=== PATIENT | male | born 1960 | race Caucasian/White ===

== ENCOUNTER 2018-10-10 10:33 | Emergency (ER) | payer OTHER ==
--- OUTSIDE RECORDS SUMMARY | 2018-10-10 10:44 | XMS REPORT ---
:1960 [facility] Address [address] [place] [address] Dr. Ballard. [address] [place] [id number] Care Team Providers Name Role Phone Unavailable Unavailable Unavailable Problems This patient has no known problems. Allergies, Adverse Reactions, Alerts This patient has no known allergies or adverse reactions. Medications This patient has no known medications.
--- NOTE | 2018-10-10 12:21 | RAD REPORT ---
EXAM DESCRIPTION: US - Extrem Venous W Compress Toy - 10/10/2018 11:59 am CLINICAL HISTORY: re-evaluate dvt Bilateral leg edema and swelling. COMPARISON: No comparisons TECHNIQUE: Real-time sonographic interrogation of the left and right lower extremity deep venous sys tems was performed. FINDINGS: Normal compressibility, flow augmentation, phasic flow and spontaneous flow is identified in both the left and right lower extremity deep venous systems. IMPRESSION: No sonographic evidence of left or right lower extremity deep venous thrombosis.
--- NOTE | 2018-10-10 12:54 | ER ---
Nurse's Notes [facility] Name: Charan Schofield Age: 57 yrs Sex: Male : 1960 Arrival Date: 10/10/2018 Time: 10:37 Bed 26 Private MD: Diagnosis: Pain in left knee;Pain in right knee Presentation: 10/10 10:49 Presenting complaint: Patient states: Diagnosed with LLE DVT after a trip to [place] 09/27/2018. Pt reports his symptoms have improved after taking prescribed medication and has had an ultrasound that showed evidence that the blood clot was there, but is now absent. Pt called his ortho doctor today for follow up as he is having bilateral knee pain, but was instructed to come to ED for evaluation to determine which doctor he needs to see. Transition of care: patient was received from another setting of care (hospital). Onset of symptoms was September 27, 2018. Risk Assessment: Do you want to hurt yourself or someone else? Patient reports no desire to harm self or others. Initial Sepsis Screen: Does the patient meet any 2 criteria? No. Patient's initial sepsis screen is negative. Does the patient have a suspected source of infection? No. Patient's initial sepsis screen is negative. Care prior to arrival: None. 10:49 Method Of Arrival: Ambulatory ss 10:49 Acuity: EAGLE 3 ss Historical: - Allergies: 10:55 No Known Allergies; ss - PMHx: 10:55 DVT; borderline HTN; ss - PSHx: 10:55 None; ss - Immunization history:: Adult Immunizations up to date. - Social history:: Smoking status: Patient/guardian denies using tobacco. - Ebola Screening: : Patient denies exposure to infectious person Patient denies travel to an Ebola-affected area in the 21 days before illness onset. Screenin:45 Abuse screen: Denies threats or abuse. Denies injuries from another. Nutritional aj screening: No deficits noted. Tuberculosis screening: No symptoms or risk factors identified. Fall Risk None identified. Assessment: 12:45 General: Appears in no apparent distress. comfortable, Behavior is calm, cooperative, aj appropriate for age. Pain: Complains of pain in right knee and left knee. Neuro: Level of Consciousness is awake, alert, obeys commands, Oriented to person, place, time, situation, Appropriate for age. Respiratory: Airway is patent Respiratory effort is even, unlabored, Respiratory pattern is regular, symmetrical. Derm: Skin is intact, is healthy with good turgor, Skin is pink, warm \T\ dry. normal. Vital Signs: 10:55 BP 151 / 106; Pulse 103; Resp 16; Temp 98.3(TE); Pulse Ox 97% on R/A; Weight 90.72 kg; Height 5 ft. 10 in. (177.80 cm); Pain 8/10; 12:37 BP 126 / 79; Pulse 85; Resp 18; Temp 98.5(O); Pulse Ox 97% on R/A; mh5 10:55 Body Mass Index 28.70 (90.72 kg, 177.80 cm) ED Course: 10:37 Patient arrived in ED. mr 10:54 Triage completed. ss 10:55 Reyna Contreras FNP-C is PHCP. kb 10:55 Jhony Altamirano MD is Attending Physician. kb 10:55 Arm band placed on right wrist. ss 10:59 Tiffanie Donaldson, RN is Primary Nurse. aj 11:54 US Extremity Venous W Compression Toy In Process Unspecified. EDMS 12:45 Patient has correct armband on for positive identification. aj 12:45 No provider procedures requiring assistance completed. Patient did not have IV access aj during this emergency room visit. Administered Medications: No medications were administered Outcome: 12:53 Discharge ordered by . kb 13:28 Patient left the ED. iw Signatures: Dispatcher [employer] EDWI Reyna Contreras FNP-C FNP-Tiffanie Verma, Tasha Lemon RN mr Lashanda Burciaga, Pilar Cantrell RN, RN RN ss Martinez, Maria [facility]
--- NOTE | 2018-10-10 12:54 | EDPHYS ---
Physician Documentation [facility] Name: Charan Schofield Age: 57 yrs Sex: Male : 1960 Arrival Date: 10/10/2018 Time: 10:37 Bed 26 Private MD: ED Physician Jhony Altamirano HPI: 10/10 12:49 This 57 yrs old Male presents to ER via Ambulatory with complaints of Leg kb Swelling. 12:49 The patient presents with pain, that is acute. The complaints affect the left knee, kb right knee. 12:49 Context: resulted from an unknown cause, the patient can fully bear weight, the patient kb is able to ambulate. Onset: The symptoms/episode began/occurred last week. Modifying factors: The symptoms are alleviated by nothing. the symptoms are aggravated by changing from sitting to standing. Associated signs and symptoms: The patient has no apparent associated signs or symptoms. Treatment prior to arrival includes: no previous treatment. Severity of symptoms: At their worst the symptoms were moderate, in the emergency department the symptoms are unchanged. The patient has not experienced similar symptoms in the past. The patient has been recently seen by a physician:. Pt reports bilateral knee "soreness" when changing from sitting to standing position. Returned from [place] over the weekend so called his orthopedist to make an appt for evaluation and was told to come to the ER to decide what specialty he needed to follow up with first. Pt was diagnosed with DVT while in [place], treated with lovenox and had an US that showed the clot was gone. Denies shortness of breath. Historical: - Allergies: 10:55 No Known Allergies; ss - PMHx: 10:55 DVT; borderline HTN; ss - PSHx: 10:55 None; ss - Immunization history:: Adult Immunizations up to date. - Social history:: Smoking status: Patient/guardian denies using tobacco. - Ebola Screening: : Patient denies exposure to infectious person Patient denies travel to an Ebola-affected area in the 21 days before illness onset. ROS: 12:47 Constitutional: Negative for fever, chills, and weight loss, Neck: Negative for injury, kb pain, and swelling, Cardiovascular: Negative for chest pain, palpitations, and edema, Respiratory: Negative for shortness of breath, cough, wheezing, and pleuritic chest pain, Abdomen/GI: Negative for abdominal pain, nausea, vomiting, diarrhea, and constipation, Skin: Negative for injury, rash, and discoloration, Neuro: Negative for headache, weakness, numbness, tingling, and seizure. 12:47 MS/extremity: Positive for pain, of the right knee and left knee. Exam: 12:47 Constitutional: This is a well developed, well nourished patient who is awake, alert, kb and in no acute distress. Head/Face: Normocephalic, atraumatic. Chest/axilla: Normal chest wall appearance and motion. Nontender with no deformity. No lesions are appreciated. Cardiovascular: Regular rate and rhythm with a normal S1 and S2. No gallops, murmurs, or rubs. Normal PMI, no JVD. No pulse deficits. Respiratory: Lungs have equal breath sounds bilaterally, clear to auscultation and percussion. No rales, rhonchi or wheezes noted. No increased work of breathing, no retractions or nasal flaring. Abdomen/GI: Soft, non-tender, with normal bowel sounds. No distension or tympany. No guarding or rebound. No evidence of tenderness throughout. Skin: Warm, dry with normal turgor. Normal color with no rashes, no lesions, and no evidence of cellulitis. MS/ Extremity: Pulses equal, no cyanosis. Neurovascular intact. Full, normal range of motion. Neuro: Awake and alert, GCS 15, oriented to person, place, time, and situation. Cranial nerves II-XII grossly intact. Motor strength 5/5 in all extremities. Sensory grossly intact. Cerebellar exam normal. Normal gait. Vital Signs: 10:55 BP 151 / 106; Pulse 103; Resp 16; Temp 98.3(TE); Pulse Ox 97% on R/A; Weight 90.72 kg; ss Height 5 ft. 10 in. (177.80 cm); Pain 8/10; 12:37 BP 126 / 79; Pulse 85; Resp 18; Temp 98.5(O); Pulse Ox 97% on R/A; mh5 10:55 Body Mass Index 28.70 (90.72 kg, 177.80 cm) ss MDM: 11:05 Patient medically screened. kb 12:48 Data reviewed: vital signs, nurses notes. Data interpreted: Pulse oximetry: on room air kb is 97 %. Interpretation: normal. Counseling: I had a detailed discussion with the patient and/or guardian regarding: the historical points, exam findings, and any diagnostic results supporting the discharge/admit diagnosis, radiology results, the need for outpatient follow up, a orthopedic surgeon, to return to the emergency department if symptoms worsen or persist or if there are any questions or concerns that arise at home. 10/10 11:26 Order name: US Extremity Venous W Compression Toy; Complete Time: 12:24 kb Administered Medications: No medications were administered Disposition: 10/11 06:59 Co-signature as Attending Physician, Jhony Altamirano MD I agree with the assessment and azeem plan of care. Disposition: 10/10/18 12:53 Discharged to Home. Impression: Pain in left knee, Pain in right knee. - Condition is Stable. - Discharge Instructions: Knee Pain, [id number]. - Medication Reconciliation Form, Thank You Letter, Antibiotic Education, Prescription Opioid Use form. - Follow up: Emergency Department; When: As needed; Reason: Worsening of condition. Follow up: Private Physician; When: 2 - 3 days; Reason: Recheck today's complaints, Continuance of care, Re-evaluation by your physician. Signatures: Dispatcher [employer] Reyna Jarvis, SOLVENT STATION ATTENDANT-C SOLVENT STATION ATTENDANT-Jhony Nuno MD MD cha Williams, Irene, Pilar Cantrell RN, RN RN ss Corrections: (The following items were deleted from the chart) 10/10 13:28 12:53 10/10/2018 12:53 Discharged to Home. Impression: Pain in left knee; Pain in right iw knee. Condition is Stable. Forms are Medication Reconciliation Form, Thank You Letter, Antibiotic Education, Prescription Opioid Use. Follow up: Emergency Department; When: As needed; Reason: Worsening of condition. Follow up: Private Physician; When: 2 - 3 days; Reason: Recheck today's complaints, Continuance of care, Re-evaluation by your physician. kb
== END 2018-10-10 13:28 | disposition home or self-care (01) ==
LOC: ER 10:33
DX: M25.562 Pain in left knee (principal); M25.561 Pain in right knee; Z86.718 Personal history of other venous thrombosis and embolism
CPT/HCPCS: 93970; 99283

== ENCOUNTER 2020-03-28 19:14 | Observation (INO) | payer OTHER ==
--- OUTSIDE RECORDS SUMMARY | 2020-03-28 19:16 | XMS REPORT | Continuity of Care Document ---
:[address] [facility] t Address [address] [place] [address] Dr. Ballard. [address] [place] [address] Care Team Providers Name Role Phone Unavailable Unavailable Unavailable Problems This patient has no known problems. Allergies, Adverse Reactions, Alerts This patient has no known allergies or adverse reactions. Medications This patient has no known medications. Procedures This patient has no known procedures. Results This patient has no known results.
[2020-03-28 19:43] LABS: Absolute Lymphocytes (CBC) 1.7 K/uL (0.7-4.9); Basophils % 0.6 % (0-1.3); Hematocrit 44.4 % (39.6-49.0); Lymphocytes % 21.9 % (15.3-44.8); MPV 10.8 fL (7.6-11.3); RBC Red Blood Cell Count 4.77 M/uL (4.33-5.43)
[2020-03-28] MEDS ORDERED: NITROGLYCERIN 0.4 MG/TAB SL ONE (19:44)
[2020-03-28 19:45] LABS: Protime INR 1.01
[2020-03-28] MEDS ORDERED: ACETAMINOPHEN 325 MG TABLET ONE (19:47)
[2020-03-28 20:01] LABS: ALT/SGPT 33 U/L (12-78); AST/SGOT 16 U/L (15-37); Albumin 4.1 g/dL (3.4-5.0); Alkaline Phosphatase 66 U/L (45-117); BUN Blood Urea Nitrogen 10 mg/dL (7-18); Bicarbonate 27 mmol/L (21-32); Bilirubin Direct 0.2 mg/dL (0-0.2); Bilirubin Total 0.7 mg/dL (0.2-1.0); Glucose Level 112 mg/dL (74-106); Magnesium 2.4 mg/dL (1.8-2.4); NT PRO-BNP 47 pg/mL (<125); Potassium 3.8 mmol/L (3.5-5.1); Protein, Total 7.4 g/dL (6.4-8.2); Sodium Level 138 mmol/L (136-145); Troponin (Emerg Dept Use Only) < 0.02 ng/mL (0.0-0.045)
--- NOTE | 2020-03-28 20:06 | RAD REPORT ---
EXAM DESCRIPTION: RAD - Chest Single View - 03/28/2020 8:00 pm CLINICAL HISTORY: CHEST PAIN Chest pain. COMPARISON: No comparisons FINDINGS: Portable technique limits examination quality. The lungs are grossly clear. The heart is normal in size. No displaced fractures. IMPRESSION: No acute intrathoracic process suspected.
--- NOTE | 2020-03-28 20:31 | RAD REPORT ---
EXAM DESCRIPTION: CT - Head Brain Wo Cont - 03/28/2020 8:23 pm CLINICAL HISTORY: CONFUSED Headache, drowsiness COMPARISON: No comparisons TECHNIQUE: All CT scans are performed using dose optimization technique as appropriate and may inclu de automated exposure control or mA/KV adjustment according to patient size. FINDINGS: No intracranial hemorrhage, hydrocephalus or extra-axial fluid collection.No areas of brai n edema or evidence of midline shift. The paranasal sinuses and mastoids are clear. The calvarium is intact. IMPRESSION: No acute intracranial abnormality.
--- NOTE | 2020-03-28 20:34 | RAD REPORT ---
EXAM DESCRIPTION: CT - Chest For Pe Angio - 03/28/2020 8:26 pm CLINICAL HISTORY: Chest pain. CHEST PAIN COMPARISON: No comparisons TECHNIQUE: CT angiogram of the pulmonary arteries was performed with MIP. All CT scans are performed using dose optimization technique as appropriate and may include automated exposure control or mA/KV adjustment according to patient size. FINDINGS: No evidence of pulmonary thromboembolism. No acute aortic finding demonstrated. The lungs are clear. No significant pericardial or pleural fluid. No concerning bony finding. IMPRESSION: No evidence of pulmonary thromboembolism. No acute lung findings.
--- NOTE | 2020-03-28 20:35 | ER ---
Nurse's Notes [facility] Name: Charan Schofield Age: 59 yrs Sex: Male : 1960 Arrival Date: 03/28/2020 Time: 19:14 Bed 7 Private MD: Diagnosis: Other chest pain Presentation: 03/28 19:28 Chief complaint: Patient states: he started feeling his whole body tingling, his arms bb are feeling heavy and he started having chest pain approx an hour ago, feels like he is having trouble concentrating. Coronavirus screen: At this time, the client does not indicate any symptoms associated with coronavirus-19. Ebola Screen: No symptoms or risks identified at this time. Initial Sepsis Screen: Does the patient meet any 2 criteria? No. Patient's initial sepsis screen is negative. Does the patient have a suspected source of infection? No. Patient's initial sepsis screen is negative. Risk Assessment: Do you want to hurt yourself or someone else? Patient reports no desire to harm self or others. Onset of symptoms was March 28, 2020. 19:28 Method Of Arrival: Wheelchair bb 19:28 Acuity: EAGLE 2 bb Historical: - Allergies: 19:32 No Known Allergies; bb - Home Meds: 19:32 testosterone [Active]; Folbic oral oral [Active]; bb - PMHx: 19:32 borderline HTN; DVT; Electrocution; bb - PSHx: 19:32 skin grafts; bb - Immunization history:: Adult Immunizations up to date. - Social history:: Smoking status: Patient denies any tobacco usage or history of. Patient uses alcohol, on a daily basis. Screenin:28 Abuse screen: Denies threats or abuse. Nutritional screening: No deficits noted. ea Tuberculosis screening: No symptoms or risk factors identified. Fall Risk IV access (20 points). Assessment: 19:16 Reassessment: sere triage assessment. Pain: Complains of pain in chest Pain does not ll2 radiate. Pain began suddenly. 20:10 General: Appears in no apparent distress. Behavior is calm, cooperative, appropriate ll2 for age. 20:46 Reassessment: Patient and/or family updated on plan of care and expected duration. Pain ll2 level reassessed. Patient is alert, oriented x 3, equal unlabored respirations, skin warm/dry/pink. ERP at bedside. 21:47 Reassessment: Patient and/or family updated on plan of care and expected duration. Pain ll2 level reassessed. Patient is alert, oriented x 3, equal unlabored respirations, skin warm/dry/pink. 21:54 Reassessment: report given to JAKUB clarke. ll2 22:14 Cardiovascular: Rhythm is sinus rhythm. ll2 Vital Signs: 19:28 BP 164 / 113; Pulse 86; Resp 14 S; Temp 98.3(O); Pulse Ox 98% on R/A; Weight 87.54 kg bb (R); Height 5 ft. 10 in. (177.80 cm) (R); Pain 2/10; 20:11 BP 141 / 98; Pulse 60; Resp 13; Temp 98.4; Pulse Ox 97% on R/A; ll2 20:37 BP 143 / 93; Pulse 63; Resp 18; Pulse Ox 96% on R/A; ll2 21:46 BP 117 / 76; Pulse 67; Resp 16; Pulse Ox 95% on R/A; ll2 19:28 Body Mass Index 27.69 (87.54 kg, 177.80 cm) ED Course: 19:14 Patient arrived in ED. am2 19:16 Keven Tesfaye MD is Attending Physician. tw4 19:28 Nicole Rome, JAKUB is Primary Nurse. ll2 19:28 Inserted saline lock: 20 gauge in right antecubital area, using aseptic technique. ea Blood collected. 19:29 Patient maintains SpO2 saturation greater than 95% on room air. ea 19:29 Arm band placed on right wrist. Patient placed in an exam room, on a stretcher, on ea lawyers, on pulse oximetry. EKG completed in triage. Results shown to MD. 19:29 Patient has correct armband on for positive identification. Placed in gown. Bed in low ea position. Call light in reach. Side rails up X 1. Adult w/ patient. menhaden vessel pilot on. Pulse ox on. NIBP on. 19:31 Triage completed. bb 19:58 XRAY Chest (1 view) In Process Unspecified. EDMS 20:23 CT Head Brain wo Cont In Process Unspecified. EDMS 20:26 CT Chest For PE Angio In Process Unspecified. EDMS 20:33 Olman Barahona is Hospitalizing Provider. tw4 22:14 No provider procedures requiring assistance completed. Patient admitted, IV remains in ll2 place. Administered Medications: 19:47 Drug: Nitroglycerin 0.4 mg Route: Sublingual; ea 20:37 Follow up: Response: No adverse reaction ll2 19:48 Drug: Tylenol 650 mg Route: PO; ea 20:37 Follow up: Response: No adverse reaction ll2 Outcome: 20:34 Decision to Hospitalize by Provider. tw4 22:14 Admitted to Med/surg accompanied by tech, via wheelchair, Report called to JAKUB CLARKE ll2 22:15 Condition: stable ll2 22:15 Instructed on the need for admit. 22:15 Patient left the ED. 2 Signatures: Dispatcher [employer] Carrie Garner, RN Tiffanie Joseph Elena, Keven Cruz RN, ea, MD MD tw4 Nicole Rome RN RN 2
--- NOTE | 2020-03-28 20:35 | EDPHYS ---
Physician Documentation [facility] Name: Charan Schofield Age: 59 yrs Sex: Male : 1960 Arrival Date: 03/28/2020 Time: 19:14 Bed 7 Private MD: ED Physician Keven Tesfaye HPI: 03/28 19:44 This 59 yrs old Male presents to ER via Wheelchair with complaints of Chest tw4 Pain > 30 y/o, High Blood Pressure. 19:44 The patient or guardian reports chest pain that is located primarily in the anterior tw4 chest wall, left. Onset: just prior to arrival, today. The pain does not radiate. Associated signs and symptoms: The patient has no apparent associated signs or symptoms. The chest pain is described as a pressure. Duration: The patient or guardian reports a single episode, that is still ongoing, but improving. Modifying factors: The symptoms are alleviated by nothing. the symptoms are aggravated by nothing. Severity of pain: At its worst the pain was moderate in the emergency department the pain is unchanged. Historical: - Allergies: 19:32 No Known Allergies; bb - Home Meds: 19:32 testosterone [Active]; Folbic oral oral [Active]; bb - PMHx: 19:32 borderline HTN; DVT; Electrocution; bb - PSHx: 19:32 skin grafts; bb - Immunization history:: Adult Immunizations up to date. - Social history:: Smoking status: Patient denies any tobacco usage or history of. Patient uses alcohol, on a daily basis. ROS: 19:44 Constitutional: Negative for fever, chills, and weight loss, Eyes: Negative for injury, tw4 pain, redness, and discharge, Neck: Negative for injury, pain, and swelling, Respiratory: Negative for shortness of breath, cough, wheezing, and pleuritic chest pain, Abdomen/GI: Negative for abdominal pain, nausea, vomiting, diarrhea, and constipation, Back: Negative for injury and pain, MS/Extremity: Negative for injury and deformity, Skin: Negative for injury, rash, and discoloration. 19:44 Cardiovascular: Positive for chest pain. Exam: 19:44 Constitutional: This is a well developed, well nourished patient who is awake, alert, tw4 and in no acute distress. Head/Face: Normocephalic, atraumatic. Chest/axilla: Normal chest wall appearance and motion. Nontender with no deformity. No lesions are appreciated. Cardiovascular: Regular rate and rhythm with a normal S1 and S2. No gallops, murmurs, or rubs. Normal PMI, no JVD. No pulse deficits. Respiratory: Lungs have equal breath sounds bilaterally, clear to auscultation and percussion. No rales, rhonchi or wheezes noted. No increased work of breathing, no retractions or nasal flaring. Abdomen/GI: Soft, non-tender, with normal bowel sounds. No distension or tympany. No guarding or rebound. No evidence of tenderness throughout. Back: No spinal tenderness. No costovertebral tenderness. Full range of motion. Skin: Warm, dry with normal turgor. Normal color with no rashes, no lesions, and no evidence of cellulitis. MS/ Extremity: Pulses equal, no cyanosis. Neurovascular intact. Full, normal range of motion. Neuro: Awake and alert, GCS 15, oriented to person, place, time, and situation. Cranial nerves II-XII grossly intact. Motor strength 5/5 in all extremities. Sensory grossly intact. Cerebellar exam normal. Normal gait. Vital Signs: 19:28 BP 164 / 113; Pulse 86; Resp 14 S; Temp 98.3(O); Pulse Ox 98% on R/A; Weight 87.54 kg bb (R); Height 5 ft. 10 in. (177.80 cm) (R); Pain 2/10; 20:11 BP 141 / 98; Pulse 60; Resp 13; Temp 98.4; Pulse Ox 97% on R/A; ll2 20:37 BP 143 / 93; Pulse 63; Resp 18; Pulse Ox 96% on R/A; ll2 21:46 BP 117 / 76; Pulse 67; Resp 16; Pulse Ox 95% on R/A; ll2 19:28 Body Mass Index 27.69 (87.54 kg, 177.80 cm) MDM: 19:44 Patient medically screened. tw4 21:48 Differential diagnosis: acute myocardial infarction, acute pericarditis, anxiety, tw4 coronary artery disease esophagitis, pericarditis, pneumonia, pulmonary embolus, stable angina, thoracic aortic disection. HEART Score: History: Highly Suspicious (2), ECG: Normal (0), Age: > 45 and < 65 years (1), Risk Factors: 1 or 2 risk factors (1), Troponin: < or = 1 x Normal Limit (0), Total Score = 4. The patient was given aspirin in the Emergency Department. Data reviewed: vital signs, nurses notes. Data reviewed: lab test result(s), cardiac enzymes, CBC, electrolytes, EKG, radiologic studies, plain films. Data interpreted: Pulse oximetry: Interpretation: normal. Test interpretation: by ED physician or midlevel provider: ECG, plain radiologic studies. Counseling: I had a detailed discussion with the patient and/or guardian regarding: the historical points, exam findings, and any diagnostic results supporting the discharge/admit diagnosis, the presence of at least one elevated blood pressure reading (>120/80) during this emergency department visit, lab results, the need for further work-up and treatment in the hospital. Physician consultation: Olman Barahona regarding admission, to the telemetry unit. patient's condition, and will see patient in inpatient room. 03/28 19:17 Order name: Basic Metabolic Panel; Complete Time: 20:05 4 03/28 21:47 Interpretation: Normal except: GLUC 112; GFR 70. 03/28 19:17 Order name: CBC with Diff; Complete Time: 20:05 4 03/28 21:47 Interpretation: Within normal limits. 03/28 19:17 Order name: LFT's; Complete Time: 20:05 4 03/28 21:47 Interpretation: Within normal limits. 03/28 19:17 Order name: Magnesium; Complete Time: 20:05 4 03/28 21:47 Interpretation: Within normal limits: MG 2.4. 03/28 19:17 Order name: NT PRO-BNP; Complete Time: 20:05 4 03/28 21:47 Interpretation: Within normal limits: NT PRO-BNP 47. 03/28 19:17 Order name: PT-INR; Complete Time: 20:05 tw4 03/28 21:47 Interpretation: Within normal limits: PT 11.9. 03/28 19:17 Order name: Troponin (emerg Dept Use Only); Complete Time: 20:05 4 03/28 19:17 Order name: XRAY Chest (1 view); Complete Time: 21:47 tw4 03/28 19:42 Order name: CT Chest For PE Angio; Complete Time: 21:47 tw4 03/28 19:42 Order name: CT Head Brain wo Cont; Complete Time: 21:47 tw4 03/28 21:00 Order name: SARS-COV-2 RT PCR; Complete Time: 21:47 EDMS 03/28 19:17 Order name: EKG; Complete Time: 19:18 tw4 03/28 19:17 Order name: Cardiac monitoring; Complete Time: 20:19 tw4 03/28 19:17 Order name: EKG - Nurse/Tech; Complete Time: 20:19 tw4 03/28 19:17 Order name: IV Saline Lock; Complete Time: 20:19 tw4 03/28 19:17 Order name: Labs collected and sent; Complete Time: 20:19 tw4 03/28 19:17 Order name: O2 Per Protocol; Complete Time: 20:19 tw4 03/28 19:17 Order name: O2 Sat Monitoring; Complete Time: 20:19 tw4 EC:44 Rate is 71 beats/min. Rhythm is regular. QRS Morgan is Normal. OK interval is normal. QRS tw4 interval is normal. QT interval is normal. No Q waves. T waves are Normal. No ST changes noted. Clinical impression: Normal ECG. Interpreted by me. Reviewed by me. Administered Medications: 19:47 Drug: Nitroglycerin 0.4 mg Route: Sublingual; ea 20:37 Follow up: Response: No adverse reaction ll2 19:48 Drug: Tylenol 650 mg Route: PO; ea 20:37 Follow up: Response: No adverse reaction ll2 Disposition: 03/28/20 20:34 Hospitalization ordered by Olman Barahona for Observation. Preliminary diagnosis is Other chest pain. - Bed requested for Telemetry/MedSurg (observation). - Status is Observation. ll2 - Condition is Stable. - Problem is new. - Symptoms have improved. Signatures: Dispatcher [employer] EDCarrie Luu RN Nayana Zepeda RN RN cg Antunez, Elena, RN RN ea Wadley, Terrence, MD MD tw4 Nicole Rome RN RN ll2 Corrections: (The following items were deleted from the chart) 20:01 19:50 CORONAVIRUS+.LAB.BRZ ordered. EDMS EDMS 21:32 20:34 Hospitalization Ordered by Olman Barahona for Observation. Preliminary diagnosis cg is Other chest pain. Bed requested for Telemetry/MedSurg (observation). Status is Observation. Condition is Stable. Problem is new. Symptoms have improved. tw4 22:15 21:32 03/28/2020 20:34 Hospitalization Ordered by Olman Barahona for Observation. ll2 Preliminary diagnosis is Other chest pain. Bed requested for Telemetry/MedSurg (observation). Status is Observation. Condition is Stable. Problem is new. Symptoms have improved. cg
--- NOTE | 2020-03-28 21:44 | P.HP ---
Certification for Inpatient Patient admitted to: Observation With expected LOS: <2 Midnights Patient will require the following post-hospital care: None Practitioner: I am a practitioner with admitting privileges, knowledge of patient current condition, hospital course, and medical plan of care. Services: Services provided to patient in accordance with Admission requirements found in Title 42 Section 412.3 of the Code of Federal Regulations <Sai Snowden - Last Filed: 03/28/20 21:38> Patient History Date of Service: 03/28/20 Primary Care Provider: None Reason for admission: Chest pain History of Present Illness: This is a 59-year-old gentleman that presented to the emergency room tonight after having a sudden onset of chest pain around 18 29 this evening. Patient was at rest when the chest pain started. Described it as a dull pressure sensation with the weakness bilaterally to the arms. Denies nausea, vomiting, shortness of breath, dizziness, or syncope. stated that he looked very dazed and disoriented when the episode started. Episode had lasted for over an hr until he was seen in the emergency room and given aspirin and nitroglycerin. At that time chest pain was relieved and currently is chest pain-free. 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 Patient currently on no medications and has a significant family history of heart disease and high blood pressure. Patient moderately hypertensive in the emergency room even post nitroglycerin. But again pain free at this time. Troponin was negative in the emergency room an EKG without specific findings at this time. Patient also had a CT PE completed since he had a history of deep vein thrombosis in the past secondary to prolonged travel. CT unremarkable at this time. Home medications list reviewed: Yes (On none currently ) - Past Medical/Surgical History Has patient received pneumonia vaccine in the past: No Diabetic: No - Family History Father -: Heart disease, Hypertension Mother -: Heart disease - Social History Smoking Status: Never smoker Smoking therapy provided: No Alcohol use: Yes CD- Drugs: No Caffeine use: Yes Place of Residence: Home <Rayne Snowdenshua - Last Filed: 03/28/20 21:38> Date of Service: 03/29/20 <alicia rodriguez - Last Filed: 03/29/20 16:54> Review of Systems General: Unremarkable Eyes: Unremarkable ENT: Unremarkable Respiratory: Unremarkable Cardiovascular: Chest Pain, Palpitations Gastrointestinal: Unremarkable Genitourinary: Unremarkable Musculoskeletal: Unremarkable Integumentary: Unremarkable Neurological: Unremarkable Lymphatics: Unremarkable <Rayne Snowdenshua - Last Filed: 03/28/20 21:38> Physical Examination - Vital Signs Temperature: 98.3 F Blood Pressure: 141/98 Pulse: 60 Respirations: 14 Pulse Ox (%): 97 - Physical Exam General: Alert, In no apparent distress, Oriented x3 HEENT: Normocephalic, PERRLA, Mucous membr. moist/pink, EOMI Neck: Supple, 2+ carotid pulse no bruit, JVD not distended, No Thyromegaly Respiratory: Clear to auscultation bilaterally, Normal air movement Cardiovascular: No edema, Normal pulses, Regular rate/rhythm, Normal S1 S2, No gallops, No rubs, No murmurs Capillary refill: <2 Seconds Gastrointestinal: Normal bowel sounds, Soft and benign, Non-distended, No ascites, No tenderness, No masses, No rebound, No guarding Musculoskeletal: No clubbing, No swelling, No contractures, No erythema, No tenderness, No warmth Integumentary: No rashes, No breakdown, No significant lesion, No tenderness/swelling, No erythema, No warmth, No cyanosis Neurological: Normal speech, Normal strength at 5/5 x4 extr, Normal tone, Sensation intact, Cranial nerves 3-12 intact, Normal affect Lymphatics: No axilla or inguinal lymphadenopathy - Studies Laboratory Data (last 24 hrs) 03/28/20 19:25: PT 11.9, INR 1.01 03/28/20 19:25: WBC 7.8, Hgb 15.4, Hct 44.4, Plt Count 177 03/28/20 19:25: Sodium 138, Potassium 3.8, BUN 10, Creatinine 1.08, Glucose 112 H, Magnesium 2.4, Total Bilirubin 0.7, AST 16, ALT 33, Alkaline Phosphatase 66 <Rayne Snowdenshua - Last Filed: 03/28/20 21:38> - Studies Laboratory Data (last 24 hrs) 03/28/20 19:25: PT 11.9, INR 1.01 03/28/20 19:25: WBC 7.8, Hgb 15.4, Hct 44.4, Plt Count 177 03/28/20 19:25: Sodium 138, Potassium 3.8, BUN 10, Creatinine 1.08, Glucose 112 H, Magnesium 2.4, Total Bilirubin 0.7, AST 16, ALT 33, Alkaline Phosphatase 66 <alicia rodriguez - Last Filed: 03/29/20 16:54> Assessment and Plan - Problems (Diagnosis) (1) Hypertension Current Visit: Yes Status: Chronic Qualifiers: Hypertension type: essential hypertension Qualified Code(s): I10 - Essential (primary) hypertension (2) Hyperlipidemia Current Visit: Yes Status: Chronic Qualifiers: Hyperlipidemia type: unspecified Qualified Code(s): E78.5 - Hyperlipidemia, unspecified (3) Chest pain Current Visit: Yes Status: Acute Qualifiers: Chest pain type: unspecified Qualified Code(s): R07.9 - Chest pain, unspecified - Plan Patient will be admitted for chest pain and have serial troponins completed over the next 24 hr. Echocardiogram has placed along with cardiology consult for further evaluation of the chest pain as it is concerning that he may have some unstable angina present. Patient had mild elevation in his glucose and has had persistent elevation in blood pressure along with past history of elevation in cholesterol from with a family has said. Lipid panel has been placed along with a hemoglobin A1c to determine if patient needs to be on medications or not. Patient will be started on blood pressure medicine by mouth here and Lovenox will be started as well prophylactically. Patient is other labs will be continued to be monitored. EKGs as necessary. Will wait further consultation from cardiology to determine if patient needs further inpatient workup versus outpatient stress test and angiogram if necessary. Discharge Plan: Home Plan to discharge in: 24 Hours - Advance Directives Does patient have a Living Will: No Does patient have a Durable POA for Healthcare: No - Code Status/Comfort Care Code Status Assessed: Yes Code Status: Full Code Critical Care: No Time Spent Managing Pts Care (In Minutes): 45 <Sai Snowden - Last Filed: 03/28/20 21:38> - Problems (Diagnosis) (1) Chest pain Current Visit: Yes Status: Acute Qualifiers: Chest pain type: unspecified Qualified Code(s): R07.9 - Chest pain, unspecified (2) Hyperlipidemia Current Visit: Yes Status: Chronic Qualifiers: Hyperlipidemia type: unspecified Qualified Code(s): E78.5 - Hyperlipidemia, unspecified (3) Hypertension Current Visit: Yes Status: Chronic Qualifiers: Hypertension type: essential hypertension Qualified Code(s): I10 - Essential (primary) hypertension (4) CAD (coronary artery disease) Current Visit: Yes Status: Acute Physician Review: Patient Assessed, Agree with Above Assessment and Plan Physician Review Additional Text: Typical chest pain/Angina. Hypertension H/o Hyperlipidemia. Plan: Trend troponin. ASA Check lipid profile. Cardiology consult. <alicia rodriguez - Last Filed: 03/29/20 16:54>
[2020-03-28] MEDS ORDERED: ONDANSETRON 4 MG/2 ML VIAL IV PRN (21:54)
[2020-03-28] MEDS ORDERED: MORPHINE 4 MG/ML SYR IV PRN (21:54)
[2020-03-28] MEDS ORDERED: ACETAMINOPHEN 500 MG TAB PO PRN (21:54)
[2020-03-28] MEDS ORDERED: NITROGLYCERIN 0.4 MG/TAB SL PRN (21:54)
[2020-03-28 22:27] VITALS: BMI 27.9
[2020-03-28] MEDS: ENOXAPARIN 100 MG/ML SYR SQ SCH (23:50)
[2020-03-29 05:04] LABS: Absolute Lymphocytes (CBC) 1.7 K/uL (0.7-4.9); Basophils % 0.9 % (0-1.3); Hematocrit 42.7 % (39.6-49.0); Lymphocytes % 31.1 % (15.3-44.8); MPV 11.1 fL (7.6-11.3); RBC Red Blood Cell Count 4.61 M/uL (4.33-5.43)
[2020-03-29 05:23] LABS: Potassium 3.7 mmol/L (3.5-5.1)
[2020-03-29 07:19] LABS: Protime INR 1.01
[2020-03-29] MEDS ORDERED: ASPIRIN EC 81 MG TAB PO SCH (09:00)
[2020-03-29] MEDS ORDERED: hydroCHLOROthiazide 25 MG TAB PO SCH (09:00)
[2020-03-29] MEDS: ENOXAPARIN 100 MG/ML SYR SQ SCH (09:00)
[2020-03-29] MEDS ORDERED: NA CHLORIDE 0.9% 1,000 ML ONE (10:50)
--- NOTE | 2020-03-29 11:05 | P.PN ---
Subjective Date of Service: 03/29/20 Primary Care Provider: None Chief Complaint: Chest pain Patient denies any chest pain. Troponin trended negative. He is scheduled for cardiac catheterization today. Physical Examination - Vital Signs Temperature: 98.1 F Blood Pressure: 129/82 Pulse: 60 Respirations: 12 Pulse Ox (%): 95 - Physical Exam General: Alert, In no apparent distress HEENT: Mucous membr. moist/pink Neck: Supple, JVD not distended Respiratory: Clear to auscultation bilaterally, Normal air movement Cardiovascular: No edema, Regular rate/rhythm, Normal S1 S2 Gastrointestinal: Normal bowel sounds, Soft and benign, No tenderness Musculoskeletal: No swelling, No erythema Integumentary: No rashes, No tenderness/swelling Neurological: Other (Nonfocal) - Studies Laboratory Data (last 24 hrs) 03/28/20 19:25: PT 11.9, INR 1.01 03/28/20 19:25: WBC 7.8, Hgb 15.4, Hct 44.4, Plt Count 177 03/28/20 19:25: Sodium 138, Potassium 3.8, BUN 10, Creatinine 1.08, Glucose 112 H, Magnesium 2.4, Total Bilirubin 0.7, AST 16, ALT 33, Alkaline Phosphatase 66 Assessment And Plan - Current Problems (Diagnosis) (1) Chest pain Current Visit: Yes Status: Acute Qualifiers: Chest pain type: unspecified Qualified Code(s): R07.9 - Chest pain, unspecified (2) Hyperlipidemia Current Visit: Yes Status: Chronic Qualifiers: Hyperlipidemia type: unspecified Qualified Code(s): E78.5 - Hyperlipidemia, unspecified (3) Hypertension Current Visit: Yes Status: Chronic Qualifiers: Hypertension type: essential hypertension Qualified Code(s): I10 - Essential (primary) hypertension - Plan Patient scheduled for cardiac catheterization today. He is on aspirin. Lipid profile is significantly elevated. Start Lipitor 40 mg daily. He is currently normotensive and borderline bradycardic. Hemoglobin A1c is 5.5. Patient is not diabetic.
[2020-03-29] MEDS ORDERED: HEPA 1000U/500MLS 1,000 UNIT/500 ML BAG IV ONE (12:17)
[2020-03-29] MEDS ORDERED: FENTANYL CITR 100 MCG/2 ML ONE (12:18)
[2020-03-29] MEDS ORDERED: MIDAZOLAM HCL 2 MG/2 ML INJ ONE ×2 (12:18→12:42)
[2020-03-29] MEDS ORDERED: NITROGLYCERIN/D5W 25 MG/250 ML BTL IV ONE (12:19)
[2020-03-29] MEDS ORDERED: ATROPINE SULF 1 MG/10 ML SYR IV ONE (12:19)
[2020-03-29] MEDS ORDERED: NITROGLYCERIN 100 MCG/ML SYR (for cath lab use only) IV ONE (12:19)
[2020-03-29] MEDS ORDERED: NA CHLORIDE 0.9% 0 ML ONE (12:19)
[2020-03-29] MEDS ORDERED: ACETAMINOPHEN 325 MG TABLET PO PRN (15:00)
[2020-03-29] MEDS ORDERED: NA CHLORIDE 0.9% 1,000 ML IV SCH (15:00)
--- NOTE | 2020-03-29 15:30 | P.DS ---
Admission Date: 03/28/20 Discharge Date: 03/29/20 Primary Care Provider: None Disposition: ROUTINE DISCHARGE Reason for Admission: Chest pain Consultations: Cardiology-Dr. Chan. - Problems (1) Chest pain Current Visit: Yes Status: Acute Qualifiers: Chest pain type: unspecified Qualified Code(s): R07.9 - Chest pain, unspecified (2) Hyperlipidemia Current Visit: Yes Status: Chronic Qualifiers: Hyperlipidemia type: unspecified Qualified Code(s): E78.5 - Hyperlipidemia, unspecified (3) Hypertension Current Visit: Yes Status: Chronic Qualifiers: Hypertension type: essential hypertension Qualified Code(s): I10 - Essential (primary) hypertension (4) CAD (coronary artery disease) Current Visit: Yes Status: Acute Brief History of Present Illness: 59-year-old gentleman with a history of hypertension and high cholesterol presented to the emergency department with a complaint of sudden onset of chest pain, relieved by nitroglycerin and aspirin. EKG done in the emergency department the floor shows significant ischemic changes. Chest x-ray was unremarkable. Initial troponin negative. CTA thorax was performed which was negative for pulmonary embolus. Given patient's risk factors which included male sex, age, hypertension and hypercholesteremia, and the typical nature of the chest pain, patient was hospitalized for further management. Hospital Course: Patient placed under observation. Troponin trended negative. He was evaluated by cardiology-Dr. Chan will performed cardiac catheterization given patient high risk factors. 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 Dr. Chan recommended medical therapy. The patient was placed on Lipitor, aspirin, NTG p.r.n. and Toprol-XL. He has been asymptomatic since hospitalization. Clinically stable after cardiac catheterization. Patient discharged to follow with Dr. Chan within 1-2 weeks. Vital Signs/Physical Exam: Temp Pulse Resp BP Pulse Ox 96.9 F 56 18 124/75 97 03/29/20 14:53 03/29/20 14:53 03/29/20 14:53 03/29/20 14:10 03/29/20 14:53 General: Alert, In no apparent distress, Oriented x3 HEENT: Mucous membr. moist/pink Neck: Supple, JVD not distended Respiratory: Clear to auscultation bilaterally, Normal air movement Cardiovascular: No edema, Regular rate/rhythm, Normal S1 S2 Capillary refill: <2 Seconds Gastrointestinal: Normal bowel sounds, Soft and benign, No tenderness Musculoskeletal: No swelling, No erythema Integumentary: No rashes Neurological: Other (Nonfocal.) Laboratory Data at Discharge: WBC 5.6 K/uL (4.3-10.9) D 03/29/20 04:25 Hgb 14.7 g/dL (13.6-17.9) 03/29/20 04:25 Hct 42.7 % (39.6-49.0) 03/29/20 04:25 Plt Count 153 K/uL (152-406) 03/29/20 04:25 PT 11.9 SECONDS (9.5-12.5) 03/29/20 07:01 INR 1.01 03/29/20 07:01 APTT 44.0 SECONDS (24.3-36.9) H 03/29/20 07:01 Sodium 143 mmol/L (136-145) 03/29/20 04:25 Potassium 3.7 mmol/L (3.5-5.1) 03/29/20 04:25 BUN 14 mg/dL (7-18) 03/29/20 04:25 Creatinine 1.09 mg/dL (0.55-1.3) 03/29/20 04:25 Glucose 93 mg/dL (74-106) 03/29/20 04:25 Magnesium 2.4 mg/dL (1.8-2.4) 03/28/20 19:25 Total Bilirubin 0.7 mg/dL (0.2-1.0) 03/28/20 19:25 AST 16 U/L (15-37) 03/28/20 19:25 ALT 33 U/L (12-78) 03/28/20 19:25 Alkaline Phosphatase 66 U/L (45-117) 03/28/20 19:25 Troponin I < 0.02 ng/mL (0.0-0.045) 03/29/20 08:24 Triglycerides 202 mg/dL (<150) H 03/29/20 04:25 Cholesterol 224 mg/dL (<200) H 03/29/20 04:25 HDL Cholesterol 41 mg/dL (40-60) 03/29/20 04:25 Cholesterol/HDL Ratio 5.46 10/23/20 04:25 Home Medications: Aspirin [Aspirin EC 81 MG] 1 tab PO DAILY 03/28/20 Cyanocobalamin/Folic AC/Vit B6 [Folbic Tablet] 2 tab PO BID 03/28/20 Multivitamin [Daily Multivitamin] 1 tab PO DAILY 03/28/20 Mv-Mn/Iron/Folic Acid/Herb 190 [Vitamin D3 Complete Caplet] 5,000 iu PO DAILY 03/28/20 Testosterone Cypionate [Depo-Testosterone] 0.4 ml IM SEECOM 03/28/20 Atorvastatin Calcium [Lipitor] 80 mg PO BEDTIME #90 tab 03/29/20 Metoprolol Succinate [Toprol Xl] 50 mg PO DAILY #90 tab 03/29/20 Nitroglycerin [Nitrostat*] 0.4 mg SL UD PRN #30 tab 03/29/20 New Medications: Atorvastatin Calcium [Lipitor] 80 mg PO BEDTIME #90 tab Nitroglycerin [Nitrostat*] 0.4 mg SL UD PRN #30 tab PRN Reason: Pain Scale 2-4 (Mild) Metoprolol Succinate [Toprol Xl] 50 mg PO DAILY #90 tab Diet: AHA Activity: Ad julita Followup: Vicente Chan MD [ACTIVE - CAN ADMIT] - 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
[2020-03-29 16:30] VITALS: TEMP 97.1
[2020-03-29 16:57] VITALS: BP 134/74; O2SAT 98
--- NOTE | 2020-03-30 09:35 | EKG ---
Test Date: 2020-03-28 Test Time: 19:26:25 Gender Studies Professor: BRADLEY MEASUREMENT RESULTS: Intervals: Rate: 71 CT: 150 QRSD: 86 QT: 388 QTc: 421 Hallam: P: 25 CT: 150 QRS: -6 T: 14 INTERPRETIVE STATEMENTS: Normal sinus rhythm Normal ECG No previous ECG available for comparison Electronically Signed On 03-30-20 09:31:20 CDT by Vicente Chan
--- NOTE | 2020-03-31 03:46 | CON ---
Date of Consultation: 03/29/2020 Reason For Consultation: Unstable angina. History Of Present Illness: Mr. Schofield is a 59-year-old male, who has history of hypertension, histo ry of DVT, history of electrocution with skin graft in the past. He takes testosterone and folic aci d only. He came in with chest pain radiating to both arms, substernal pressure with exertion, diapho resis, shortness of breath. Denied any nausea, vomiting. Denied any PND, orthopnea, pedal edema, pa lpitations, or syncope. He denied any fever, cough, or chills. He actually ruled out for an ND alre gonzález and his EKG was nonspecific and his chest x-ray was normal, but his history was very much consist ent with unstable angina. He definitely was hypertensive when he came in with blood pressure 164/113 . This is new to him. He has had his blood pressure treated with weight control and salt control, b ut has never been on any medicines before. Allergies: NONE. Review of Systems: Negative. Social History: Negative. Family History: Noncontributory. Medications: As listed earlier. Past Medical History: As listed earlier. Physical Examination: Vital Signs: Initial blood pressure was 164/113 with a pulse of 86, respiratory rate was 14. He was afebrile. Oxygen saturation on room air was 98%. He weighed 87 kg. His height was 5 feet 10 inche s. HEENT: Negative. Neck: Supple with no bruit. Chest: Clear to auscultation and percussion. Cardiac: Regular rhythm and rate. No murmurs, gallops, or rubs. Abdomen: Benign. Extremities: No clubbing, cyanosis, or edema. Diagnostic Data: Chest x-ray was negative. CT angiogram of the chest was negative. Head CT was neg ative. His laboratory evaluation was fairly unremarkable. His creatinine was 1.09. His cholesterol is 224, LDL is 143, and triglyceride is 202. Impression And Plan: This is a patient with new-onset hypertension, new-onset dyslipidemia, classic symptoms for unstable angina. I will plan to take him to the medical lab specialist today to define his coronary a natomy. The case was discussed with him and his . They understand the risk and the benefits of the procedure and they agreed to proceed. Meanwhile, we will continue his present regimen, which inc chad Faithx. He is also on aspirin, metoprolol, and statin. LEANDRA/DOTTY Voice ID: [id number] Report ID: [id number]
--- NOTE | 2020-03-31 04:25 | OP ---
Date of Procedure: 03/29/2020 Surgeon: Vicente Chan MD Machine Binding Folder: Lien Hua. Procedure: Left heart catheterization with selective coronary arteriogram. Indication: Unstable angina. Description Of Procedure: Mr. Schofield is 59-year-old. He came into the emergency room on 03/28/2020 with classic unstable angina symptoms, was found to be hypertensive with high cholesterol. OK was ru led out. EKG was normal. Chest x-ray was normal. He was brought to the lab[facility] construction or [facility] on 03/29/2020. He was brought in as an inpatient, prepped and draped in routine sterile fashion. Given Versed for sed ation. Using the Seldinger technique, we used 10 cc of xylocaine in the right common femoral artery area. A 6-Emirati sheath was introduced there without any difficulties. Angiography there after the end of the case was normal and Angio-Seal was used to close the case. Zulema catheter was used to s elect the left main and right main respectively. He had a normal right coronary artery. His circumf henrik was normal. His LAD was normal where he had about a 60% to 70% first diagonal stenosis right at the ostium of the diagonal. I decided to treat that medically. I did not want to interfere with the LAD considering the location of the diagonal. The patient tolerated the procedure well. There were no complications. Blood Loss: 5 cc. Total Conscious Sedation: 45 minutes. Postoperative Diagnosis: Coronary artery disease, moderate in the diagonal. Plan: Medical therapy with aspirin, beta blockers, Plavix, and statin. The patient will remain at [facility] for 2 hours after the Angio-Seal. He will be able to go home today and I will see him in the office in 2 weeks. LEANDRA/DOTTY Voice ID: [id number] Report ID: [id number]
--- NOTE | 2020-04-01 11:06 | ECHO ---
HEIGHT: 5 ft 10 in WEIGHT: 194 lb 11.2 oz DATE OF STUDY: 03/29/[address]: Sai Snowden 2-DIMENSIONAL: YES M.MODE: YES DOPPLER: YES COLOR FLOW: YES TDS: NO PORTABLE: NO DEFINITY: NO BUBBLE STUDY: NO DIAGNOSIS: CHEST PAIN CARDIAC HISTORY: CATHERIZATION: NO SURGERY: NO PROSTHETIC VALVE: NO PACEMAKER: NO MEASUREMENTS (cm) DIASTOLIC (NORMALS) SYSTOLIC (NORMALS) IVSd 1.0 (0.6-1.2) LA Diam 2.7 (1.9-4.0) LVEF 57% LVIDd 4.0 (3.5-5.7) LVIDs 2.9 (2.0-3.5) %FS 29% LVPWd 1.1 (0.6-1.2) Ao Diam 2.9 (2.0-3.7) 2 DIMENSIONAL ASSESSMENT: RIGHT ATRIUM: NORMAL LEFT ATRIUM: NORMAL RIGHT VENTRICLE: NORMAL LEFT VENTRICLE: NORMAL TRICUSPID VALVE: NORMAL MITRAL VALVE: NORMAL PULMONIC VALVE: NORMAL AORTIC VALVE: NORMAL PERICARDIAL EFFUSION: NONE AORTIC ROOT: NORMAL LEFT VENTRICULAR WALL MOTION: NORMAL. DOPPLER/COLOR FLOW: NORMAL. COMMENTS: NORMAL 2D ECHO WITH DOPPLER. NO WALL MOTION ABNORMALITY. NO EFFUSION. TECHNOLOGIST: KYA SOLANO
== END 2020-03-29 17:10 | disposition home or self-care (01) ==
LOC: ER 19:14 → ERHOLD 20:55 → 2ND 21:46
PROVIDERS: ADMIT Internal Medicine; ATTEND Internal Medicine
DX: I25.10 Atherosclerotic heart disease of native coronary artery without angina pectoris (principal); R07.9 Chest pain, unspecified; I10 Essential (primary) hypertension; E78.00 Pure hypercholesterolemia, unspecified; Z86.718 Personal history of other venous thrombosis and embolism; E78.5 Hyperlipidemia, unspecified; Z20.828 Contact with and (suspected) exposure to other viral communicable diseases
CPT/HCPCS: 93005; 93306; 85025 ×2; 80048 ×2; 36415; 83735; 85610 ×2; 80061; 80076; 85730; 83036; 84484 ×4; 83880; 70450; 71275; 71045; 93454; 99285; U0003; Q9967; C1893; C1760; J2250 ×2; J3010; J1650; G0378 ×3; J7030; J1644; J0583